=== PATIENT | male | born 1975 | race Caucasian/White ===

== ENCOUNTER 2023-12-30 19:50 | Inpatient (IN) | payer OTHER ==
[~2023-12-30] VITALS: Ht 162.6 cm; Wt 63.5 kg
[2023-12-30] MEDS: ONDANSETRON HCL 4MG/2ML INJ IV STA (20:18)
[2023-12-30] MEDS: MORPHINE SULFATE 4 MG/ML INJ (FOR IV/IM USE) IV STA (20:18)
[2023-12-30] MEDS: SODIUM CHLORIDE 0.9% 1,000 ML IV ONE ×2 (20:22)
[2023-12-30] MEDS: PANTOPRAZOLE SODIUM 40 MG/VIAL IV STA (20:25)
[2023-12-30 20:26] LABS: BASOPHILS % 0.9 % (0.0-2.0); CHLORIDE 102 mEq/L (98-107); DIFFERENTIAL COMMENT 0; EOSINOPHILS % 0.5 % (0.0-5.0); LYMPHOCYTES % 20.4 % (20.0-50.0); MEAN CORPUSCULAR HEMOGLOBIN 31.7 pg (28.0-32.0); MEAN CORPUSCULAR HGB CONC 31.2 g/dL (31.0-37.0); MEAN CORPUSCULAR VOLUME 101.8 fL (80.0-94.0); MEAN PLATELET VOLUME 10.4 fl (7.4-10.4); MONOCYTES % 5.7 % (2.0-8.0); NEUTROPHILS % 72.5 % (40.0-76.0); PLATELET 182 x1000/uL (130-400); POTASSIUM 3.9 mEq/L (3.5-5.1); RED BLOOD CELL COUNT 1.46 mill/uL (4.7-6.1); SODIUM 134 mEq/L (136-145); WHITE BLOOD COUNT 21.4 x1000/uL (4.5-11.0)
[2023-12-30 20:27] LABS: CALCIUM 7.6 mg/dL (8.7-10.4); CARBON DIOXIDE 22 mEq/L (21-32)
[2023-12-30 20:29] LABS: HEMOGLOBIN. 4.6 g/dL (14.0-18.0)
[2023-12-30 20:30] LABS: HEMATOCRIT. 14.9 % (42.0-52.0)
[2023-12-30 20:32] LABS: CREATININE 0.8 mg/dL (0.6-1.3); GLUCOSE 190 mg/dL (70-105); TROPONIN I HIGH SENSITIVITY 47 ng/L (3.0-53); UREA NITROGEN BLOOD 15 mg/dL (9-23)
[2023-12-30 20:34] LABS: ALANINE AMINOTRANSFERASE 12 IU/L (10-49); ALBUMIN 2.1 g/dL (3.2-4.8); ASPARTATE AMINOTRANSFERASE 77 IU/L (<34); BILIRUBIN DIRECT 1.4 mg/dL (<=3.0)
[2023-12-30 20:35] LABS: BILIRUBIN TOTAL 2.8 mg/dL (0.1-1.0)
[2023-12-30 20:36] LABS: ETHANOL BLOOD < 10 mg/dL (<10)
[2023-12-30 20:47] LABS: INR 1.6; PARTIAL THROMBOPLASTIN TIME 36.7 sec (23.4-31.0); PROTHROMBIN TIME 16.8 sec (9.6-11.0)
[2023-12-30] MEDS: OCTREOTIDE ACETATE 50 MCG/ML 1ML IV STA (20:57)
[2023-12-30] MEDS: OCTREOTIDE 1,000 MCG in SODIUM CHLORIDE 0.9% 100 ML IV STA (21:04)
[2023-12-30] MEDS: PANTOPRAZOLE 80 MG in SODIUM CHLORIDE 0.9% 100 ML IV STA (21:09)
[2023-12-30] MEDS ORDERED: NOREPINEPHRINE 8 MG in DEXT 5% WATER 242 ML IV STA (22:24)
[2023-12-30] MEDS: NOREPINEPHRINE 8MG/250ML PMX 250 ML IV PRN (22:58)
[2023-12-31] VITALS (55 sets, daily range): BP systolic 89–128; BP diastolic 55–77; PULSE 76–101; RESP 13–25; TEMP 36.16956–37.11408; O2SAT 95–100
[2023-12-31] MEDS: CEFTRIAXONE 1GM/50ML 50 ML IV ONE (00:27)
[2023-12-31] MEDS: METRONIDAZOLE 500 MG PREMIX 100 ML IV ONE (00:43)
[2023-12-31 01:18] LABS: CLARITY URINE CLOUDY (CLEAR); COLOR URINE ORANGE (YELLOW); GLUCOSE URINE NEGATIVE (NEGATIVE); KETONES URINE NEGATIVE (NEGATIVE); LEUKOCYTE ESTERASE URINE 1+ (NEGATIVE); NITRITE URINE POSITIVE (NEGATIVE); OCCULT BLOOD URINE NEGATIVE (NEGATIVE); PH URINE 5.5 (4.5-8.0); PROTEIN URINE 1+ (NEGATIVE); SPECIFIC GRAVITY URINE 1.021 (1.005-1.030)
[2023-12-31 02:26] LABS: RBC URINE 0-2 /hpf (0-2); SQUAMOUS EPITHELIAL CELL URINE NONE SEEN /lpf (RARE/1+); WBC URINE 0-2 /hpf (0-2)
[2023-12-31 02:29] LABS: AMORPHOUS SEDIMENT URINE 1+ /lpf; BACTERIA URINE NONE SEEN
[2023-12-31 02:32] LABS: *AMPHETAMINES SCREEN URINE NEGATIVE (NEGATIVE); *BARBITURATES SCREEN URINE NEGATIVE (NEGATIVE); *BENZODIAZEPINES SCREEN URINE NEGATIVE (NEGATIVE); *COCAINE SCREEN URINE NEGATIVE (NEGATIVE)
[2023-12-31 02:33] LABS: CANNABINOID URINE SCREEN NEGATIVE (NEGATIVE); ECSTASY MDMA SCREEN URINE NEGATIVE (NEGATIVE); METHADONE URINE SCREEN NEGATIVE (NEGATIVE); OPIATES URINE SCREEN PRESUMPTIVE POSITIVE (NEGATIVE); PHENCYCLIDINE URINE SCREEN NEGATIVE (NEGATIVE)
[2023-12-31 10:26] LABS: HEMATOCRIT 19.3 % (42.0-52.0); HEMOGLOBIN 6.2 g/dL (14.0-18.0)
[2023-12-31] MEDS: PHYTONADIONE 10 MG in DEXTROSE 5% WATER 50 ML IV SCH (10:56)
[2023-12-31] MEDS ORDERED: IPRATROPIUM/ALBUTEROL 0.5-3(2.5)MG/3ML NEB HHN PRN (11:15)
[2023-12-31] MEDS: SODIUM CHLORIDE 0.9% 1,000 ML IV ONE (11:33)
[2023-12-31] MEDS: PIPERACILLIN/TAZO 3.375G/50ML 50 ML IV SCH (13:30)
[2023-12-31] MEDS: SODIUM CHLORIDE 0.9% 1,000 ML IV SCH (13:30)
[2023-12-31 13:31] LABS: BASOPHILS % 0.6 % (0.0-2.0); DIFFERENTIAL COMMENT 0; EOSINOPHILS % 1.2 % (0.0-5.0); LYMPHOCYTES % 13.2 % (20.0-50.0); MEAN CORPUSCULAR HEMOGLOBIN 30.9 pg (28.0-32.0); MEAN CORPUSCULAR HGB CONC 33.2 g/dL (31.0-37.0); MEAN PLATELET VOLUME 9.8 fl (7.4-10.4); MONOCYTES % 9.7 % (2.0-8.0); NEUTROPHILS % 75.3 % (40.0-76.0); PLATELET 174 x1000/uL (130-400); RED BLOOD CELL COUNT 2.13 mill/uL (4.7-6.1); RED CELL DISTRIBUTION WIDTH 18.1 % (11.6-14.6); WHITE BLOOD COUNT 22.6 x1000/uL (4.5-11.0)
[2023-12-31 13:50] LABS: INR 1.5; PROTHROMBIN TIME 16.2 sec (9.6-11.0)
[2023-12-31 13:55] LABS: CHLORIDE 110 mEq/L (98-107); POTASSIUM 4.3 mEq/L (3.5-5.1); SODIUM 139 mEq/L (136-145)
[2023-12-31 13:56] LABS: CARBON DIOXIDE 24 mEq/L (21-32)
[2023-12-31 13:57] LABS: CALCIUM 6.8 mg/dL (8.7-10.4)
[2023-12-31 13:58] LABS: HEMATOCRIT. 19.8 % (42.0-52.0); HEMOGLOBIN. 6.6 g/dL (14.0-18.0)
[2023-12-31 14:02] LABS: GLUCOSE 130 mg/dL (70-105); UREA NITROGEN BLOOD 22 mg/dL (9-23)
[2023-12-31 14:03] LABS: ALANINE AMINOTRANSFERASE 11 IU/L (10-49); ASPARTATE AMINOTRANSFERASE 61 IU/L (<34); TRIGLYCERIDE 122 mg/dL (0-150)
[2023-12-31 14:04] LABS: ALBUMIN 1.8 g/dL (3.2-4.8); BILIRUBIN DIRECT 1.7 mg/dL (<=3.0); BILIRUBIN TOTAL 3.7 mg/dL (0.1-1.0); LDL CHOLESTEROL 41 mg/dL (5-100); PROTEIN TOTAL 5.2 g/dL (6.0-8.3)
[2023-12-31 14:05] LABS: CHOLESTEROL 105 mg/dL (<200); HDL CHOLESTEROL < 20 mg/dL (>55); PHOSPHORUS 4.1 mg/dL (2.5-4.9)
[2023-12-31 14:07] LABS: T4 FREE 0.96 ng/dL (0.89-1.76)
[2023-12-31 14:08] LABS: THYROID STIMULATING HORMONE 0.79 uIU/mL (0.55-4.78)
[2023-12-31] MEDS ORDERED: OCTREOTIDE 1,000 MCG in SODIUM CHLORIDE 0.9% 100 ML IV SCH ×2 (15:00→15:45)
[2023-12-31] MEDS ORDERED: CALCIUM GLUCONATE 1,000 MG in DEXT 5% WATER 90 ML IV ONE (15:15)
[2023-12-31] MEDS: CALCIUM GLUCONATE 1GM PREMIX 50ML IV NR (16:33)
[2023-12-31] MEDS: MAGNESIUM 2 G PREMIX 50 ML IV NR (16:33)
[2023-12-31] MEDS: ONDANSETRON HCL 4MG/2ML INJ IV PRN (16:33)
[2023-12-31] MEDS: NOREPINEPHRINE 8MG/250ML PMX 250ML IV PRN (16:40)
[2023-12-31] MEDS: OCTREOTIDE 1,000 MCG in SODIUM CHLORIDE 0.9% 100 ML IV SCH (16:41)
[2023-12-31 18:03] LABS: CREATINE KINASE MB FRACTION 0.6 ng/mL (0.5-3.6)
[2023-12-31] MEDS: PANTOPRAZOLE SODIUM 40 MG/VIAL IV SCH (20:21)
[2024-01-01] VITALS (76 sets, daily range): BP systolic 87–118; BP diastolic 42–91; PULSE 68–95; RESP 11–29; TEMP 36.3918–37.00296; O2SAT 91–100
[2024-01-01 00:46] LABS: HEMATOCRIT 22.6 % (42.0-52.0); HEMOGLOBIN 7.3 g/dL (14.0-18.0)
[2024-01-01 01:06] LABS: CREATINE KINASE 34 IU/L (46-171)
[2024-01-01 01:07] LABS: CREATINE KINASE MB FRACTION < 0.5 ng/mL (0.5-3.6); TROPONIN I HIGH SENSITIVITY 34 ng/L (3.0-53)
[2024-01-01 03:39] LABS: CHLORIDE 113 mEq/L (98-107); POTASSIUM 3.7 mEq/L (3.5-5.1); SODIUM 141 mEq/L (136-145)
[2024-01-01 03:40] LABS: CALCIUM 7.2 mg/dL (8.7-10.4); CARBON DIOXIDE 24 mEq/L (21-32)
[2024-01-01 03:45] LABS: CREATININE 0.6 mg/dL (0.6-1.3); GLUCOSE 111 mg/dL (70-105); IRON 138 ug/dL (65-175); UREA NITROGEN BLOOD 18 mg/dL (9-23)
[2024-01-01 03:47] LABS: GAMMA GLUTAMYL TRANSPEPTIDASE 317 IU/L (<73); PHOSPHORUS 2.8 mg/dL (2.5-4.9)
[2024-01-01 03:48] LABS: BILIRUBIN TOTAL 3.7 mg/dL (0.1-1.0); TOTAL IRON BINDING CAPACITY 184 ug/dl (250-425)
[2024-01-01 03:50] LABS: BASOPHILS % 1.2 % (0.0-2.0); EOSINOPHILS % 5.4 % (0.0-5.0); HEMATOCRIT. 22.8 % (42.0-52.0); HEMOGLOBIN. 7.2 g/dL (14.0-18.0); LYMPHOCYTES % 11.4 % (20.0-50.0); MEAN CORPUSCULAR HEMOGLOBIN 29.1 pg (28.0-32.0); MEAN CORPUSCULAR HGB CONC 31.7 g/dL (31.0-37.0); MEAN CORPUSCULAR VOLUME 91.8 fL (80.0-94.0); MEAN PLATELET VOLUME 9.9 fl (7.4-10.4); MONOCYTES % 7.8 % (2.0-8.0); NEUTROPHILS % 74.2 % (40.0-76.0); PLATELET 142 x1000/uL (130-400); RED BLOOD CELL COUNT 2.48 mill/uL (4.7-6.1); RED CELL DISTRIBUTION WIDTH 18.9 % (11.6-14.6); WHITE BLOOD COUNT 17.2 x1000/uL (4.5-11.0)
[2024-01-01 04:09] LABS: INR 1.3; PROTHROMBIN TIME 13.9 sec (9.6-11.0)
[2024-01-01 06:48] LABS: HEMATOCRIT 22.9 % (42.0-52.0); HEMOGLOBIN 7.6 g/dL (14.0-18.0)
[2024-01-01 07:10] LABS: FERRITIN 137 ng/mL (22-322); FOLIC ACID (FOLATE) SERUM 8.07 ng/mL (>5.38); VITAMIN B12 SERUM 1469 pg/mL (211-911)
[2024-01-01 07:21] LABS: HEPATITIS B SURFACE ANTIGEN NEGATIVE (Negative)
[2024-01-01 07:41] LABS: HEPATITIS A AB IGM NEGATIVE (Negative)
[2024-01-01 07:42] LABS: HEPATITIS B CORE AB IGM NEGATIVE (Negative); HEPATITIS C AB NON REACTIVE (Neg) (Negative)
[2024-01-01] MEDS: PHYTONADIONE 10MG/ML INJ SUBCUT SCH (09:17)
[2024-01-01] MEDS: LIDOCAINE HCL 1% 10 MG/ML 10ML VIAL ONE (13:53)
[2024-01-01] MEDS ORDERED: PROPOFOL 200MG/20ML VIAL IV ONE (14:33)
[2024-01-01] MEDS ORDERED: EPHEDRINE SULFATE 50MG/ML VIAL ONE (14:33)
[2024-01-01] MEDS ORDERED: LIDOCAINE HCL 1% 20ML VIAL ONE (14:33)
[2024-01-01] MEDS ORDERED: MIDAZOLAM HCL 2 MG/2 ML VIAL ONE (14:45)
[2024-01-01 17:08] LABS: BASOPHILS % 1.2 % (0.0-2.0); EOSINOPHILS % 5.7 % (0.0-5.0); HEMATOCRIT. 24.3 % (42.0-52.0); HEMOGLOBIN. 7.9 g/dL (14.0-18.0); LYMPHOCYTES % 13.5 % (20.0-50.0); MEAN CORPUSCULAR HEMOGLOBIN 29.9 pg (28.0-32.0); MEAN CORPUSCULAR HGB CONC 32.4 g/dL (31.0-37.0); MEAN CORPUSCULAR VOLUME 92.3 fL (80.0-94.0); MEAN PLATELET VOLUME 9.6 fl (7.4-10.4); NEUTROPHILS % 72.6 % (40.0-76.0); PLATELET 138 x1000/uL (130-400); RED BLOOD CELL COUNT 2.63 mill/uL (4.7-6.1); RED CELL DISTRIBUTION WIDTH 19.1 % (11.6-14.6)
[2024-01-01 21:59] LABS: HEMATOCRIT 25.9 % (42.0-52.0); HEMOGLOBIN 8.2 g/dL (14.0-18.0)
[2024-01-02] VITALS (10 sets, daily range): BP systolic 90–101; BP diastolic 61–71; PULSE 68–85; RESP 12–31; TEMP 36.61404–37.00296; O2SAT 95–100
[2024-01-02] MEDS ORDERED: ALBUMIN HUMAN 25GM/100ML (25%) IV NR (08:30)
[2024-01-02] MEDS ORDERED: OMEP40CA20 MT (11:02)
[2024-01-02] MEDS ORDERED: LEVO-65 MT (11:02)
[2024-01-02 12:56] LABS: HEMATOCRIT. 24.6 % (42.0-52.0); HEMOGLOBIN. 7.9 g/dL (14.0-18.0); LYMPHOCYTES % 14.6 % (20.0-50.0); MEAN CORPUSCULAR HGB CONC 32.1 g/dL (31.0-37.0); MEAN CORPUSCULAR VOLUME 93.3 fL (80.0-94.0); MEAN PLATELET VOLUME 9.3 fl (7.4-10.4); MONOCYTES % 7.2 % (2.0-8.0); NEUTROPHILS % 71.2 % (40.0-76.0); PLATELET 162 x1000/uL (130-400); RED BLOOD CELL COUNT 2.63 mill/uL (4.7-6.1); RED CELL DISTRIBUTION WIDTH 18.7 % (11.6-14.6); WHITE BLOOD COUNT 11.7 x1000/uL (4.5-11.0)
[2024-01-02 13:01] LABS: CHLORIDE 106 mEq/L (98-107); POTASSIUM 3.4 mEq/L (3.5-5.1); SODIUM 135 mEq/L (136-145)
[2024-01-02 13:02] LABS: CALCIUM 7.2 mg/dL (8.7-10.4); CARBON DIOXIDE 24 mEq/L (21-32)
[2024-01-02 13:07] LABS: CREATININE 0.5 mg/dL (0.6-1.3); GLUCOSE 104 mg/dL (70-105); UREA NITROGEN BLOOD 10 mg/dL (9-23)
[2024-01-02 13:09] LABS: BILIRUBIN TOTAL 2.9 mg/dL (0.1-1.0)
== END 2024-01-02 17:05 | disposition home or self-care (01) ==
LOC: ER 19:50 → EDBEDREQ 23:34 → EDBEDREQTM 23:35 → MICUSO 12-31 13:35 → 5EST 01-01 18:40
PROVIDERS: ADMIT Internal Medicine; ATTEND Internal Medicine
PROC: 30233N1 Transfusion of Nonautologous Red Blood Cells into Peripheral Vein, Percutaneous Approach (ICD-10-PCS; 2023-12-30)
PROC: 30233K1 Transfusion of Nonautologous Frozen Plasma into Peripheral Vein, Percutaneous Approach (ICD-10-PCS; 2023-12-31)
PROC: 0DB78ZX Excision of Stomach, Pylorus, Via Natural or Artificial Opening Endoscopic, Diagnostic (ICD-10-PCS; principal; 2024-01-01)
PROC: 05H933Z Insertion of Infusion Device into Right Brachial Vein, Percutaneous Approach (ICD-10-PCS; 2024-01-01)
PROC: B54MZZA Ultrasonography of Right Upper Extremity Veins, Guidance (ICD-10-PCS; 2024-01-01)
DX: K74.60 Unspecified cirrhosis of liver (principal); R57.8 Other shock; I85.11 Secondary esophageal varices with bleeding; D68.9 Coagulation defect, unspecified; E88.09 Other disorders of plasma-protein metabolism, not elsewhere classified; E87.1 Hypo-osmolality and hyponatremia; K29.50 Unspecified chronic gastritis without bleeding; R18.8 Other ascites; K31.89 Other diseases of stomach and duodenum; N39.0 Urinary tract infection, site not specified; F10.20 Alcohol dependence, uncomplicated; D53.9 Nutritional anemia, unspecified
CPT/HCPCS: 36415; 36573; 71045; 74176; 76700; 80048; 80061; 80076; 80305; 80320; 81003; 82247; 82550; 82553; 82607; 82728; 82746; 82977; 83036; 83540; 83550; 83605; 83735; 83880; 84100; 84145; 84439; 84443; 84480; 84484; 85014; 85018; 85025; 85044; 86705; 86709; 86850; 86900; 86920; 86927; 87340; 88305; 88312; 88313; 93005; 99285; J0610; J0696; J2250; J2270; J2354; J2405; J2470; J2543; J2704; J3430; J3475; J3490; J7030; J7050; J7060; P9016; P9017; P9047; G0480